=== PATIENT | male | born 1940 | race Caucasian/White ===

== ENCOUNTER → 2016-11-18 | Outpatient (CLI) | payer MEDICARE, OTHER ==
[~2016-11-18] MED LIST: NIAC500T13 PO; PRAVASTATIN; PRO20T GT; VERA240C2 OR
[2016-11-18 09:18] LABS: Basophils # (auto) 0.1 uL; Basophils % (auto) 0.7 % (0.0-2.0); Eosinophils # (auto) 0.1 uL; Eosinophils % (auto) 1.2 % (0.0-7.0); Hematocrit 41.8 % (41.0-53.0); Hemoglobin 13.6 g/dL (13.5-17.5); Lymphocytes % (auto) 13.6 % (10.0-50.0); Mean Corpuscular Hemoglobin 31.1 pg (28.0-32.0); Mean Corpuscular Hgb Conc. 32.5 g/dL (32.0-36.0); Mean Corpuscular Volume 95.8 fL (80.0-100.0); Mean Platelet Volume 7.6 fL (7.4-10.4); Monocytes # (auto) 0.7 uL; Neutrophils # (auto) 5.5 uL; Neutrophils % (auto) 75.5 % (37.0-80.0); Platelet Count (auto) 277 10^3/uL (140-450); Red Cell Distribution Width 12.6 % (11.6-16.0); White Blood Cell 7.3 10^3/uL (4.4-10.8)
[2016-11-18 09:31] LABS: Urine Bilirubin Negative (Negative); Urine Blood Negative /uL (Negative); Urine Color Yellow (Yellow); Urine Glucose Normal (Normal); Urine Ketone Negative (Negative); Urine Nitrite Negative (Negative); Urine RBC <1 /hpf (0 - 3); Urine Urobilinogen Normal (Negative); Urine pH 6.5 (5.0-8.0)
[2016-11-18 10:36] LABS: Albumin 4.1 g/dL (3.4-5.0); BUN/Creatinine Ratio 10.8; Bilirubin, Total 0.7 mg/dL (0.2-1.0); Potassium 4.3 mmol/L (3.5-5.1); Total Protein 7.9 g/dL (6.4-8.2)
== END | disposition home or self-care (01) ==
LOC: LAB 08:05
PROVIDERS: ATTEND Family Medicine
DX: Z85.46 Personal history of malignant neoplasm of prostate (principal); E78.5 Hyperlipidemia, unspecified
CPT/HCPCS: 36415; 80053; 80061; 81001; 84153; 85025

== ENCOUNTER → 2017-02-02 | Outpatient (CLI) | payer MEDICARE, OTHER ==
[2017-02-02 09:26] LABS: Urine RBC None Seen /hpf (0 - 3)
[2017-02-02 09:39] LABS: Basophils # (auto) 0 uL; Basophils % (auto) 0.7 % (0.0-2.0); Eosinophils # (auto) 0.1 uL; Eosinophils % (auto) 1.9 % (0.0-7.0); Hematocrit 41.9 % (41.0-53.0); Hemoglobin 14.3 g/dL (13.5-17.5); Lymphocytes # (auto) 1.2 uL; Lymphocytes % (auto) 23.8 % (10.0-50.0); Mean Corpuscular Hemoglobin 32.1 pg (28.0-32.0); Mean Corpuscular Hgb Conc. 34.2 g/dL (32.0-36.0); Mean Corpuscular Volume 93.8 fL (80.0-100.0); Mean Platelet Volume 7.3 fL (7.4-10.4); Monocytes # (auto) 0.5 uL; Monocytes % (auto) 10.1 % (0.0-12.0); Neutrophils # (auto) 3.2 uL; Neutrophils % (auto) 63.5 % (37.0-80.0); Platelet Count (auto) 300 10^3/uL (140-450); Red Cell Distribution Width 13.1 % (11.6-16.0); White Blood Cell 5.1 10^3/uL (4.4-10.8)
[2017-02-02 09:45] LABS: Urine Bilirubin Negative (Negative); Urine Blood Negative /uL (Negative); Urine Color Yellow (Yellow); Urine Glucose Normal (Normal); Urine Ketone Negative (Negative); Urine Nitrite Negative (Negative); Urine Urobilinogen Normal (Negative)
[2017-02-02 10:30] LABS: Albumin 4.2 g/dL (3.4-5.0); BUN/Creatinine Ratio 10.5; Bilirubin, Total 0.7 mg/dL (0.2-1.0); Calcium 9.1 mg/dL (8.5-10.1); Potassium 4.1 mmol/L (3.5-5.1); Total Protein 8.4 g/dL (6.4-8.2)
== END | disposition home or self-care (01) ==
LOC: LAB 08:49
DX: Z79.899 Other long term (current) drug therapy (principal); E55.9 Vitamin D deficiency, unspecified
CPT/HCPCS: 36415; 80053; 81001; 82306; 85025; 87086

== ENCOUNTER → 2017-06-29 | Outpatient (CLI) | payer MEDICARE, OTHER ==
[2017-06-29 09:22] LABS: Urine RBC None Seen /hpf (0 - 3)
[2017-06-29 09:28] LABS: Basophils # (auto) 0 uL; Basophils % (auto) 0.6 % (0.0-2.0); CONDITION Y; Eosinophils # (auto) 0.2 uL; Eosinophils % (auto) 3.1 % (0.0-7.0); Hematocrit 39.7 % (41.0-53.0); Hemoglobin 13.9 g/dL (13.5-17.5); Lymphocytes # (auto) 1.2 uL; Lymphocytes % (auto) 24.1 % (10.0-50.0); Mean Corpuscular Hgb Conc. 35.1 g/dL (32.0-36.0); Mean Corpuscular Volume 93.9 fL (80.0-100.0); Mean Platelet Volume 7.1 fL (6.9-10.8); Monocytes # (auto) 0.5 uL; Monocytes % (auto) 10.8 % (0.0-12.0); Neutrophils # (auto) 3.1 uL; Neutrophils % (auto) 61.4 % (37.0-80.0); Platelet Count (auto) 257 10^3/uL (140-450); Red Cell Distribution Width 12.7 % (11.8-14.3)
[2017-06-29 09:50] LABS: BUN/Creatinine Ratio 8.9; Bilirubin, Total 0.3 mg/dL (0.2-1.0); Calcium 8.7 mg/dL (8.5-10.1); Potassium 3.6 mmol/L (3.5-5.1)
[2017-06-29 09:55] LABS: Urine Bilirubin Negative (Negative); Urine Blood Negative /uL (Negative); Urine Color Yellow (Yellow); Urine Glucose Normal (Normal); Urine Ketone Negative (Negative); Urine Mucus FEW (None Seen); Urine Nitrite Negative (Negative); Urine Squamous Epithelial Cell FEW /hpf (<5); Urine Urobilinogen Normal (Negative); Urine pH 5.5 (5.0-8.0)
== END | disposition home or self-care (01) ==
LOC: LAB 09:01
DX: Z01.89 Encounter for other specified special examinations (principal); E55.9 Vitamin D deficiency, unspecified; I10 Essential (primary) hypertension; Z79.899 Other long term (current) drug therapy
CPT/HCPCS: 36415; 80053; 81001; 82306; 85025

== ENCOUNTER → 2017-08-24 | Outpatient (CLI) | payer MEDICARE, OTHER ==
[2017-08-24 08:38] LABS: Urine RBC None Seen /hpf (0 - 3)
[2017-08-24 08:56] LABS: Basophils # (auto) 0.1 uL; Eosinophils # (auto) 0.1 uL; Hematocrit 41.7 % (41.0-53.0); Hemoglobin 14.5 g/dL (13.5-17.5); Lymphocytes # (auto) 0.8 uL; Lymphocytes % (auto) 9.8 % (10.0-50.0); Mean Corpuscular Hemoglobin 32.9 pg (28.0-32.0); Mean Corpuscular Hgb Conc. 34.8 g/dL (32.0-36.0); Mean Corpuscular Volume 94.5 fL (80.0-100.0); Monocytes # (auto) 0.6 uL; Monocytes % (auto) 7.2 % (0.0-12.0); Neutrophils # (auto) 6.6 uL; Platelet Count (auto) 226 10^3/uL (140-450); Red Cell Distribution Width 12.9 % (11.8-14.3); White Blood Cell 8.2 10^3/uL (4.4-10.8)
[2017-08-24 09:05] LABS: Urine Bilirubin Negative (Negative); Urine Blood Negative /uL (Negative); Urine Glucose Normal (Normal); Urine Ketone Negative (Negative); Urine Mucus FEW (None Seen); Urine Nitrite Negative (Negative); Urine Urobilinogen Normal (Negative); Urine pH 5.5 (5.0-8.0)
[2017-08-24 09:07] LABS: Urine Color Yellow (Yellow)
[2017-08-24 09:15] LABS: Albumin 4.2 g/dL (3.4-5.0); BUN/Creatinine Ratio 9.2; Bilirubin, Total 0.6 mg/dL (0.2-1.0); Potassium 3.9 mmol/L (3.5-5.1); Total Protein 8.4 g/dL (6.4-8.2)
== END | disposition home or self-care (01) ==
LOC: LAB 08:20
DX: I10 Essential (primary) hypertension (principal); Z79.899 Other long term (current) drug therapy
CPT/HCPCS: 36415; 80053; 81001; 82306; 85025

== ENCOUNTER → 2018-03-26 | Outpatient (CLI) | payer MEDICARE, OTHER ==
[2018-03-26 08:53] LABS: Basophils # (auto) 0.1 uL; Basophils % (auto) 1.2 % (0.0-2.0); Eosinophils # (auto) 0.1 uL; Eosinophils % (auto) 1.7 % (0.0-7.0); Hematocrit 39.8 % (41.0-53.0); Hemoglobin 13.9 g/dL (13.5-17.5); Lymphocytes # (auto) 1.3 uL; Lymphocytes % (auto) 21.5 % (10.0-50.0); Mean Corpuscular Hemoglobin 32.5 pg (28.0-32.0); Mean Corpuscular Hgb Conc. 35.1 g/dL (32.0-36.0); Mean Corpuscular Volume 92.8 fL (80.0-100.0); Monocytes # (auto) 0.6 uL; Monocytes % (auto) 9.5 % (0.0-12.0); Neutrophils # (auto) 3.9 uL; Neutrophils % (auto) 66.1 % (37.0-80.0); Nucleated Red Blood Cells % 0.1 %; Platelet Count (auto) 231 10^3/uL (140-450); Red Blood Cells 4.29 10^6/uL (4.5-5.90); Red Cell Distribution Width 12.9 % (11.8-14.3); White Blood Cell 5.8 10^3/uL (4.4-10.8)
[2018-03-26 08:59] LABS: Urine Bacteria NONE SEEN /hpf (None Seen); Urine Blood Negative /uL (Negative); Urine Specific Gravity 1.016 (1.001-1.035); Urine WBC <1 /hpf (0 - 3)
[2018-03-26 09:46] LABS: BUN/Creatinine Ratio 13.2; Bilirubin, Total 0.4 mg/dL (0.2-1.0); Calcium 9.1 mg/dL (8.5-10.1); Potassium 4.2 mmol/L (3.5-5.1); Total Protein 8.1 g/dL (6.4-8.2)
== END | disposition home or self-care (01) ==
LOC: LAB 08:33
PROVIDERS: ATTEND Family Medicine
DX: I10 Essential (primary) hypertension (principal); E78.5 Hyperlipidemia, unspecified; Z79.899 Other long term (current) drug therapy; Z85.46 Personal history of malignant neoplasm of prostate
CPT/HCPCS: 36415; 80053; 80061; 81001; 83036; 84153; 85025

== ENCOUNTER → 2018-10-19 | Outpatient (CLI) | payer MEDICARE, OTHER ==
[2018-10-19 09:10] LABS: Basophils # (auto) 0.1 uL; Basophils % (auto) 1.2 % (0.0-2.0); Eosinophils # (auto) 0.1 uL; Eosinophils % (auto) 2.3 % (0.0-7.0); Hematocrit 41.4 % (41.0-53.0); Hemoglobin 14.1 g/dL (13.5-17.5); Lymphocytes # (auto) 0.9 uL; Lymphocytes % (auto) 18.8 % (10.0-50.0); Mean Corpuscular Hemoglobin 32.3 pg (28.0-32.0); Mean Corpuscular Hgb Conc. 34.2 g/dL (32.0-36.0); Mean Corpuscular Volume 94.5 fL (80.0-100.0); Monocytes # (auto) 0.5 uL; Monocytes % (auto) 11.2 % (0.0-12.0); Neutrophils # (auto) 3.2 uL; Neutrophils % (auto) 66.5 % (37.0-80.0); Platelet Count (auto) 230 10^3/uL (140-450); Red Blood Cells 4.38 10^6/uL (4.5-5.90); Red Cell Distribution Width 12.7 % (11.8-14.3); White Blood Cell 4.8 10^3/uL (4.4-10.8)
[2018-10-19 09:26] LABS: Albumin 4.1 g/dL (3.4-5.0); Potassium 4.1 mmol/L (3.5-5.1)
[2018-10-19 09:34] LABS: BUN/Creatinine Ratio 16.9; Bilirubin, Total 0.7 mg/dL (0.2-1.0); Calcium 8.8 mg/dL (8.5-10.1)
[2018-10-19 10:44] LABS: Urine Bacteria NONE SEEN /hpf (None Seen); Urine Blood Negative /uL (Negative); Urine Mucus FEW (None Seen); Urine Specific Gravity 1.017 (1.001-1.035); Urine WBC <1 /hpf (0 - 3)
== END | disposition home or self-care (01) ==
LOC: LAB 08:26
PROVIDERS: ATTEND Nurse Practitioner
DX: E78.5 Hyperlipidemia, unspecified (principal); I10 Essential (primary) hypertension; R35.1 Nocturia; Z79.899 Other long term (current) drug therapy
CPT/HCPCS: 36415; 80053; 80061; 81001; 83036; 84153; 84443; 85025

== ENCOUNTER → 2019-01-17 | Outpatient (CLI) | payer MEDICARE, OTHER ==
[2019-01-17 09:25] LABS: Urine Bacteria NONE SEEN /hpf (None Seen); Urine Blood Negative /uL (Negative); Urine Specific Gravity 1.022 (1.001-1.035); Urine WBC 1 /hpf (0 - 3)
[2019-01-17 09:27] LABS: Basophils # (auto) 0 uL; Basophils % (auto) 0.8 % (0.0-2.0); Eosinophils # (auto) 0.2 uL; Eosinophils % (auto) 3.9 % (0.0-7.0); Hematocrit 40.6 % (41.0-53.0); Hemoglobin 14.2 g/dL (13.5-17.5); Lymphocytes # (auto) 1.1 uL; Lymphocytes % (auto) 20.9 % (10.0-50.0); Mean Corpuscular Hemoglobin 32.5 pg (28.0-32.0); Mean Corpuscular Hgb Conc. 34.9 g/dL (32.0-36.0); Mean Corpuscular Volume 93.1 fL (80.0-100.0); Monocytes # (auto) 0.6 uL; Monocytes % (auto) 11.2 % (0.0-12.0); Neutrophils # (auto) 3.3 uL; Neutrophils % (auto) 63.2 % (37.0-80.0); Nucleated Red Blood Cells % 0.1 %; Platelet Count (auto) 228 10^3/uL (140-450); Red Blood Cells 4.36 10^6/uL (4.5-5.90); Red Cell Distribution Width 12.9 % (11.8-14.3); White Blood Cell 5.3 10^3/uL (4.4-10.8)
[2019-01-17 09:37] LABS: Potassium 4.3 mmol/L (3.5-5.1)
[2019-01-17 09:51] LABS: Albumin 4.1 g/dL (3.4-5.0); BUN/Creatinine Ratio 15.2; Bilirubin, Total 0.6 mg/dL (0.2-1.0); Calcium 8.9 mg/dL (8.5-10.1); Total Protein 8.1 g/dL (6.4-8.2)
== END | disposition home or self-care (01) ==
LOC: LAB 08:45
PROVIDERS: ATTEND Nurse Practitioner
DX: E11.9 Type 2 diabetes mellitus without complications (principal); E78.5 Hyperlipidemia, unspecified
CPT/HCPCS: 36415; 80053; 80061; 81001; 82043; 83036; 85025

== ENCOUNTER → 2019-05-16 | Outpatient (CLI) | payer MEDICARE, OTHER ==
[2019-05-16 09:52] LABS: Urine Bacteria NONE SEEN /hpf (None Seen); Urine Blood Negative /uL (Negative); Urine Mucus FEW (None Seen); Urine Specific Gravity 1.022 (1.001-1.035); Urine WBC 1 /hpf (0 - 3)
[2019-05-16 09:57] LABS: Basophils # (auto) 0.1 uL; Basophils % (auto) 1.4 % (0.0-2.0); Eosinophils # (auto) 0.1 uL; Eosinophils % (auto) 3.1 % (0.0-7.0); Hematocrit 40.5 % (41.0-53.0); Hemoglobin 14.1 g/dL (13.5-17.5); Lymphocytes % (auto) 23.6 % (10.0-50.0); Mean Corpuscular Hemoglobin 32.7 pg (28.0-32.0); Mean Corpuscular Hgb Conc. 34.7 g/dL (32.0-36.0); Monocytes # (auto) 0.5 uL; Monocytes % (auto) 10.8 % (0.0-12.0); Neutrophils # (auto) 2.7 uL; Neutrophils % (auto) 61.1 % (37.0-80.0); Nucleated Red Blood Cells % 0.1 %; Platelet Count (auto) 213 10^3/uL (140-450); Red Cell Distribution Width 12.6 % (11.8-14.3); White Blood Cell 4.4 10^3/uL (4.4-10.8)
[2019-05-16 10:37] LABS: Potassium 4.1 mmol/L (3.5-5.1)
[2019-05-16 10:49] LABS: Albumin 3.9 g/dL (3.4-5.0); BUN/Creatinine Ratio 13.9; Bilirubin, Total 0.5 mg/dL (0.2-1.0); Total Protein 7.8 g/dL (6.4-8.2)
== END | disposition home or self-care (01) ==
LOC: LAB 08:49
PROVIDERS: ATTEND Nurse Practitioner
DX: E11.9 Type 2 diabetes mellitus without complications (principal); E78.5 Hyperlipidemia, unspecified; Z85.46 Personal history of malignant neoplasm of prostate
CPT/HCPCS: 36415; 80053; 80061; 81001; 82043; 83036; 84153; 84443; 85025

== ENCOUNTER → 2022-03-03 | Outpatient (CLI) | payer MEDICARE, OTHER ==
[~2022-03-03] MED LIST changes: -NIAC500T13 PO; +NIAC500T93 PO
== END | disposition home or self-care (01) ==
LOC: XYW 09:34
PROVIDERS: ATTEND Internal Medicine
DX: I35.1 Nonrheumatic aortic (valve) insufficiency (principal)
CPT/HCPCS: 93306

== ENCOUNTER → 2022-03-25 | Outpatient (CLI) | payer MEDICARE, OTHER ==
[~2022-03-25] VITALS: Ht 177.8 cm; Wt 80.7 kg
[~2022-03-25] MED LIST changes: +ADENOSINE 68 MG in GIVE UN-DILUTED 0 ML IV STA
[2022-03-25 09:52] VITALS: BP 159/95
== END | disposition home or self-care (01) ==
LOC: XY 08:28
PROVIDERS: ATTEND Internal Medicine
DX: I99.8 Other disorder of circulatory system (principal); R94.31 Abnormal electrocardiogram [ECG] [EKG]; R20.9 Unspecified disturbances of skin sensation; Z87.891 Personal history of nicotine dependence; Z86.69 Personal history of other diseases of the nervous system and sense organs
CPT/HCPCS: 78452; 93017; A9500; J0153

== ENCOUNTER 2022-09-01 15:53 | Inpatient (IN) | payer MEDICARE, OTHER ==
[~2022-09-01] VITALS: Ht 177.8 cm; Wt 78.1 kg
[~2022-09-01 15:53] MED LIST changes: -ADENOSINE 68 MG in GIVE UN-DILUTED 0 ML IV STA
[2022-09-01 16:55] LABS: Basophils # (auto) 0.1 10 ^3/uL (0-0.2); Basophils % (auto) 1.3 % (0.0-2.0); Eosinophils # (auto) 0.1 10 ^3/uL (0-0.8); Eosinophils % (auto) 2.5 % (0.0-7.0); Hematocrit 33.5 % (41.0-53.0); Lymphocytes # (auto) 0.5 10 ^3/uL (0.4-5.4); Lymphocytes % (auto) 8.4 % (10.0-50.0); Mean Corpuscular Hemoglobin 28.3 pg (28.0-32.0); Mean Corpuscular Hgb Conc. 32.7 g/dL (32.0-36.0); Mean Corpuscular Volume 86.5 fL (80.0-100.0); Monocytes # (auto) 0.5 10 ^3/uL (0-1.3); Monocytes % (auto) 7.7 % (0.0-12.0); Neutrophils # (auto) 4.8 10 ^3/uL (1.6-8.6); Neutrophils % (auto) 80.1 % (37.0-80.0); Nucleated Red Blood Cells % 0.1 %; Red Blood Cells 3.87 10^6/uL (4.5-5.90); Red Cell Distribution Width 16.8 % (11.8-14.3)
[2022-09-01 17:33] LABS: Albumin 2.2 g/dL (3.4-5.0); Bilirubin, Total 0.7 mg/dL (0.2-1.0); Calcium 8.3 mg/dL (8.5-10.1); Magnesium 2.3 mg/dL (1.6-2.6)
[2022-09-01 17:57] LABS: Potassium 1.9 mmol/L (3.5-5.1)
[2022-09-01] MEDS ORDERED: POTASSIUM CHL 20 Meq TABLET PO ONE (18:00)
[2022-09-01] MEDS ORDERED: POTASSIUM CHL 20MEQ/100ML 100 ML IV ONE (18:00)
[2022-09-01] MEDS ORDERED: MORPHINE SULFATE INJ 2 MG/ml SYRG IV PRN (21:00)
[2022-09-01] MEDS ORDERED: DEXTROSE (50%) 50ML SYRG IV PRN (21:00)
[2022-09-01] MEDS ORDERED: TEMAZEPAM 15 MG CAP PO PRN (21:00)
[2022-09-01] MEDS ORDERED: NITROGLYCERIN 0.4 MG SL TAB SL PRN (21:00)
[2022-09-01] MEDS ORDERED: ACETAMINOPHEN 325 MG TAB PO PRN (21:00)
[2022-09-01] MEDS ORDERED: ONDANSETRON HCL 4 MG/2 ML VIAL IV PRN (21:00)
[2022-09-01] MEDS ORDERED: cloNIDine HCL 0.1 MG TAB PO PRN (21:00)
[2022-09-01] MEDS: ACCU-CHEK COMFORT CURVE STRIP VI SCH (21:36)
[2022-09-01] MEDS: InsuLIN REG 1unit/0.01ml Soln (100units/ml) SC SCH (21:36)
[2022-09-01] MEDS: ATORVASTATIN 20 MG TAB PO SCH (21:55)
[2022-09-01] MEDS: PROPRANOLOL HCL 20 MG TAB PO SCH (21:56)
[2022-09-01 22:21] LABS: Anion Gap 11 (5-15); BUN/Creatinine Ratio 11.7; Blood Urea Nitrogen 27 mg/dL (7-18); Calcium 7.8 mg/dL (8.5-10.1); Carbon Dioxide 25 mmol/L (21-32); Chloride 97 mmol/L (98-107); GFR African American 35 mL/min; GFR Non-African American 29 mL/min; Glucose 99 mg/dL (74-106); Sodium 133 mmol/L (136-145)
[2022-09-01 22:49] LABS: Potassium 2.3 mmol/L (3.5-5.1)
[2022-09-02] MEDS ORDERED: POTASSIUM CHL 20MEQ/100ML 100 ML IV ONE
[2022-09-02 05:45] LABS: Basophils # (auto) 0 10 ^3/uL (0-0.2); Basophils % (auto) 0.8 % (0.0-2.0); Eosinophils # (auto) 0.2 10 ^3/uL (0-0.8); Eosinophils % (auto) 3.8 % (0.0-7.0); Hematocrit 28.5 % (41.0-53.0); Hemoglobin 9.4 g/dL (13.5-17.5); Lymphocytes # (auto) 0.5 10 ^3/uL (0.4-5.4); Lymphocytes % (auto) 8.6 % (10.0-50.0); Mean Corpuscular Hemoglobin 28.6 pg (28.0-32.0); Mean Corpuscular Hgb Conc. 33.1 g/dL (32.0-36.0); Mean Corpuscular Volume 86.5 fL (80.0-100.0); Monocytes # (auto) 0.5 10 ^3/uL (0-1.3); Monocytes % (auto) 7.8 % (0.0-12.0); Neutrophils # (auto) 4.7 10 ^3/uL (1.6-8.6); Red Cell Distribution Width 16.5 % (11.8-14.3); White Blood Cell 5.9 10^3/uL (4.4-10.8)
[2022-09-02 06:19] LABS: BUN/Creatinine Ratio 12.2; Calcium 8.1 mg/dL (8.5-10.1)
[2022-09-02 06:28] LABS: Potassium 2.5 mmol/L (3.5-5.1)
[2022-09-02] MEDS: ACCU-CHEK COMFORT CURVE STRIP VI SCH ×4 (06:37→22:11)
[2022-09-02] MEDS: InsuLIN REG 1unit/0.01ml Soln (100units/ml) SC SCH ×4 (06:39→22:00)
[2022-09-02] MEDS ORDERED: POTASSIUM CHL 20 Meq TABLET PO ONE ×3 (06:45→20:00)
[2022-09-02] MEDS ORDERED: ALBUTEROL SULF 2.5 MG/0.5ML(0.5%) NEB SOLN NEB PRN (09:00)
[2022-09-02 09:37] LABS: Phosphorus 3.3 mg/dL (2.5-4.90); Uric Acid 4.8 mg/dL (3.5-7.2)
[2022-09-02] MEDS ORDERED: ENOXAPARIN SOD 40 MG/0.4 ML SYRINGE SC SCH (10:00)
[2022-09-02] MEDS ORDERED: PANTOPRAZOLE 40 MG TAB PO SCH (10:00)
[2022-09-02] MEDS: LOSARTAN POTASSIUM 25 MG TAB PO SCH (11:00)
[2022-09-02] MEDS: PROPRANOLOL HCL 20 MG TAB PO SCH ×2 (11:01→22:12)
[2022-09-02] MEDS: DOXYCYCLINE 100 MG TAB/CAP PO SCH ×2 (11:01→22:12)
[2022-09-02] MEDS: ENOXAPARIN SOD 30 MG/0.3 ML SYRINGE SC SCH (11:02)
[2022-09-02 12:13] LABS: Urine Bacteria FEW /hpf (None Seen); Urine Blood TRACE /uL (Negative); Urine Specific Gravity 1.015 (1.001-1.035); Urine WBC 5 /hpf (0 - 3)
[2022-09-02 13:48] LABS: Creatinine, Urine 96 mg/dL (30.0-125.0); Sodium Urine 41 mmol/L (40-220)
[2022-09-02 15:27] VITALS: BP 124/77
[2022-09-02] MEDS: POTASSIUM CHL 20 Meq TABLET PO SCH ×2 (15:35→20:16)
[2022-09-02] MEDS: ATORVASTATIN 20 MG TAB PO SCH (22:11)
[2022-09-03] MEDS ORDERED: LOSA-69 PO (01:21)
[2022-09-03 05:00] VITALS: BP 127/70
[2022-09-03] MEDS: ACCU-CHEK COMFORT CURVE STRIP VI SCH ×4 (07:00→22:42)
[2022-09-03] MEDS: InsuLIN REG 1unit/0.01ml Soln (100units/ml) SC SCH ×4 (07:00→22:00)
[2022-09-03 07:03] LABS: Potassium 3.2 mmol/L (3.5-5.1)
[2022-09-03 07:04] LABS: BUN/Creatinine Ratio 14.1; Calcium 7.9 mg/dL (8.5-10.1); Magnesium 2.2 mg/dL (1.6-2.6)
[2022-09-03] MEDS ORDERED: POTASSIUM CHL 20 Meq TABLET PO ONE ×2 (07:45→16:00)
[2022-09-03] MEDS ORDERED: SPIRONOLACTONE 25 MG TAB PO ONE (08:30)
[2022-09-03 08:58] VITALS: BP 131/80
[2022-09-03] MEDS: ENOXAPARIN SOD 30 MG/0.3 ML SYRINGE SC SCH (11:23)
[2022-09-03] MEDS: DOXYCYCLINE 100 MG TAB/CAP PO SCH ×2 (11:24→22:39)
[2022-09-03] MEDS: PROPRANOLOL HCL 20 MG TAB PO SCH ×2 (11:24→22:39)
[2022-09-03] MEDS: LOSARTAN POTASSIUM 25 MG TAB PO SCH (11:25)
[2022-09-03 13:20] VITALS: BP 111/81
[2022-09-03 16:44] VITALS: BP 129/77
[2022-09-03] MEDS: ATORVASTATIN 20 MG TAB PO SCH (22:00)
[2022-09-04 05:00] VITALS: BP 135/79
[2022-09-04] MEDS: InsuLIN REG 1unit/0.01ml Soln (100units/ml) SC SCH ×4 (05:38→21:54)
[2022-09-04] MEDS: ACCU-CHEK COMFORT CURVE STRIP VI SCH ×4 (05:47→22:00)
[2022-09-04 06:28] LABS: Calcium 8.2 mg/dL (8.5-10.1); Potassium 4.1 mmol/L (3.5-5.1)
[2022-09-04 06:32] LABS: BUN/Creatinine Ratio 14.7; Magnesium 1.9 mg/dL (1.6-2.6)
[2022-09-04 09:00] VITALS: BP 139/91
[2022-09-04] MEDS: PROPRANOLOL HCL 20 MG TAB PO SCH ×2 (09:55→21:55)
[2022-09-04] MEDS: DOXYCYCLINE 100 MG TAB/CAP PO SCH ×2 (09:55→21:55)
[2022-09-04] MEDS: ENOXAPARIN SOD 30 MG/0.3 ML SYRINGE SC SCH (09:56)
[2022-09-04] MEDS: LOSARTAN POTASSIUM 25 MG TAB PO SCH (09:56)
[2022-09-04 13:00] VITALS: BP 123/78
[2022-09-04 17:30] VITALS: BP 136/77
[2022-09-04] MEDS: ATORVASTATIN 20 MG TAB PO SCH (21:55)
[2022-09-04 22:07] VITALS: BP 146/88
[2022-09-05] VITALS (7 sets, daily range): BP systolic 126–151; BP diastolic 77–86
[2022-09-05 05:16] LABS: Basophils # (auto) 0 10 ^3/uL (0-0.2); Basophils % (auto) 0.5 % (0.0-2.0); Eosinophils # (auto) 0.1 10 ^3/uL (0-0.8); Eosinophils % (auto) 1.5 % (0.0-7.0); Hematocrit 30.3 % (41.0-53.0); Hemoglobin 10.1 g/dL (13.5-17.5); Lymphocytes # (auto) 0.5 10 ^3/uL (0.4-5.4); Lymphocytes % (auto) 7.5 % (10.0-50.0); Mean Corpuscular Hemoglobin 28.9 pg (28.0-32.0); Mean Corpuscular Hgb Conc. 33.2 g/dL (32.0-36.0); Mean Corpuscular Volume 87.1 fL (80.0-100.0); Monocytes # (auto) 0.5 10 ^3/uL (0-1.3); Monocytes % (auto) 6.6 % (0.0-12.0); Neutrophils # (auto) 5.7 10 ^3/uL (1.6-8.6); Neutrophils % (auto) 83.9 % (37.0-80.0); Red Blood Cells 3.48 10^6/uL (4.5-5.90); Red Cell Distribution Width 16.7 % (11.8-14.3); White Blood Cell 6.8 10^3/uL (4.4-10.8)
[2022-09-05 05:31] LABS: Albumin 2.1 g/dL (3.4-5.0); Potassium 3.3 mmol/L (3.5-5.1)
[2022-09-05 05:38] LABS: BUN/Creatinine Ratio 18.4; Bilirubin, Total 0.9 mg/dL (0.2-1.0); Calcium 8.3 mg/dL (8.5-10.1); Magnesium 1.8 mg/dL (1.6-2.6)
[2022-09-05] MEDS: InsuLIN REG 1unit/0.01ml Soln (100units/ml) SC SCH ×4 (06:35→21:35)
[2022-09-05] MEDS: ACCU-CHEK COMFORT CURVE STRIP VI SCH ×4 (06:35→21:35)
[2022-09-05] MEDS ORDERED: MAGNESIUM OXIDE 400 MG TAB PO ONE (08:30)
[2022-09-05] MEDS ORDERED: POTASSIUM CHL 20 Meq TABLET PO ONE (08:30)
[2022-09-05] MEDS: LOSARTAN POTASSIUM 25 MG TAB PO SCH (10:40)
[2022-09-05] MEDS: POTASSIUM CHL 20 Meq TABLET PO SCH (10:41)
[2022-09-05] MEDS: PROPRANOLOL HCL 20 MG TAB PO SCH ×2 (10:41→22:00)
[2022-09-05] MEDS: DOXYCYCLINE 100 MG TAB/CAP PO SCH ×2 (10:42→21:35)
[2022-09-05] MEDS: ATORVASTATIN 20 MG TAB PO SCH (21:35)
[2022-09-06 05:00] VITALS: BP 147/85
[2022-09-06 05:36] LABS: Potassium 3.4 mmol/L (3.5-5.1)
[2022-09-06 05:43] LABS: Albumin 2.1 g/dL (3.4-5.0); Bilirubin, Total 0.9 mg/dL (0.2-1.0); Calcium 8.9 mg/dL (8.5-10.1); Magnesium 1.9 mg/dL (1.6-2.6)
[2022-09-06] MEDS: ACCU-CHEK COMFORT CURVE STRIP VI SCH ×4 (06:35→22:00)
[2022-09-06] MEDS: InsuLIN REG 1unit/0.01ml Soln (100units/ml) SC SCH ×4 (06:35→22:00)
[2022-09-06 08:46] LABS: Basophils # (auto) 0 10 ^3/uL (0-0.2); Basophils % (auto) 0.5 % (0.0-2.0); Eosinophils # (auto) 0.2 10 ^3/uL (0-0.8); Eosinophils % (auto) 3.2 % (0.0-7.0); Hematocrit 34.1 % (41.0-53.0); Hemoglobin 10.6 g/dL (13.5-17.5); Lymphocytes # (auto) 0.3 10 ^3/uL (0.4-5.4); Lymphocytes % (auto) 4.4 % (10.0-50.0); Mean Corpuscular Hemoglobin 27.2 pg (28.0-32.0); Mean Corpuscular Hgb Conc. 31.1 g/dL (32.0-36.0); Mean Corpuscular Volume 87.6 fL (80.0-100.0); Monocytes # (auto) 0.5 10 ^3/uL (0-1.3); Monocytes % (auto) 7.1 % (0.0-12.0); Neutrophils # (auto) 5.5 10 ^3/uL (1.6-8.6); Neutrophils % (auto) 84.8 % (37.0-80.0); Nucleated Red Blood Cells % 0.4 %; Red Cell Distribution Width 16.7 % (11.8-14.3); White Blood Cell 6.5 10^3/uL (4.4-10.8)
[2022-09-06 09:00] VITALS: BP 133/74
[2022-09-06] MEDS: PROPRANOLOL HCL 20 MG TAB PO SCH ×2 (10:38→22:49)
[2022-09-06] MEDS: LOSARTAN POTASSIUM 25 MG TAB PO SCH (10:38)
[2022-09-06] MEDS: MAGNESIUM OXIDE 400 MG TAB PO SCH (10:39)
[2022-09-06] MEDS: DOXYCYCLINE 100 MG TAB/CAP PO SCH ×2 (10:39→22:50)
[2022-09-06] MEDS: POTASSIUM CHL 20 Meq TABLET PO SCH (10:39)
[2022-09-06 12:36] VITALS: BP 129/80
[2022-09-06 16:46] VITALS: BP 149/80
[2022-09-06 20:00] VITALS: BP 121/79
[2022-09-06 22:00] VITALS: BP 121/79
[2022-09-06] MEDS: ATORVASTATIN 20 MG TAB PO SCH (22:50)
[2022-09-07 05:00] VITALS: BP 135/76
[2022-09-07] MEDS: InsuLIN REG 1unit/0.01ml Soln (100units/ml) SC SCH ×4 (05:37→21:47)
[2022-09-07] MEDS: ACCU-CHEK COMFORT CURVE STRIP VI SCH ×4 (05:37→21:46)
[2022-09-07 06:11] LABS: Basophils # (auto) 0.1 10 ^3/uL (0-0.2); Basophils % (auto) 0.9 % (0.0-2.0); Eosinophils # (auto) 0.2 10 ^3/uL (0-0.8); Eosinophils % (auto) 3.9 % (0.0-7.0); Hematocrit 33.1 % (41.0-53.0); Hemoglobin 10.6 g/dL (13.5-17.5); Lymphocytes # (auto) 0.4 10 ^3/uL (0.4-5.4); Lymphocytes % (auto) 7.5 % (10.0-50.0); Mean Corpuscular Hemoglobin 27.9 pg (28.0-32.0); Mean Corpuscular Volume 87.3 fL (80.0-100.0); Monocytes # (auto) 0.6 10 ^3/uL (0-1.3); Monocytes % (auto) 9.7 % (0.0-12.0); Neutrophils # (auto) 4.6 10 ^3/uL (1.6-8.6); Nucleated Red Blood Cells % 0.3 %; Red Blood Cells 3.79 10^6/uL (4.5-5.90); Red Cell Distribution Width 16.7 % (11.8-14.3); White Blood Cell 5.9 10^3/uL (4.4-10.8)
[2022-09-07 06:25] LABS: Albumin 2.2 g/dL (3.4-5.0); BUN/Creatinine Ratio 19.4; Calcium 8.9 mg/dL (8.5-10.1); Magnesium 1.8 mg/dL (1.6-2.6)
[2022-09-07 06:36] LABS: Bilirubin, Total 0.9 mg/dL (0.2-1.0); Total Protein 7.3 g/dL (6.4-8.2)
[2022-09-07 09:19] VITALS: BP 135/91
[2022-09-07] MEDS: DOXYCYCLINE 100 MG TAB/CAP PO SCH ×2 (10:43→21:34)
[2022-09-07] MEDS: PROPRANOLOL HCL 20 MG TAB PO SCH ×2 (10:44→21:43)
[2022-09-07] MEDS: POTASSIUM CHL 20 Meq TABLET PO SCH (10:44)
[2022-09-07] MEDS: LOSARTAN POTASSIUM 25 MG TAB PO SCH (10:45)
[2022-09-07] MEDS: MAGNESIUM OXIDE 400 MG TAB PO SCH (10:45)
[2022-09-07 13:00] VITALS: BP 130/86
[2022-09-07 17:00] VITALS: BP 135/79
[2022-09-07] MEDS: POTASSIUM CHL 20MEQ/100ML 100 ML IV SCH ×3 (17:17→21:00)
[2022-09-07] MEDS: ATORVASTATIN 20 MG TAB PO SCH (21:33)
[2022-09-07 22:00] VITALS: BP 122/74
[2022-09-08] MEDS: POTASSIUM CHL 20MEQ/100ML 100 ML IV SCH ×2 (00:17→02:00)
[2022-09-08 05:00] VITALS: BP 141/79
[2022-09-08] MEDS ORDERED: POTASSIUM CHL 20MEQ/100ML 100 ML IV SCH (05:40)
[2022-09-08 05:57] LABS: Basophils # (auto) 0.1 10 ^3/uL (0-0.2); Basophils % (auto) 0.9 % (0.0-2.0); Eosinophils # (auto) 0.2 10 ^3/uL (0-0.8); Eosinophils % (auto) 3.7 % (0.0-7.0); Hematocrit 28.5 % (41.0-53.0); Hemoglobin 9.3 g/dL (13.5-17.5); Lymphocytes # (auto) 0.4 10 ^3/uL (0.4-5.4); Lymphocytes % (auto) 6.7 % (10.0-50.0); Mean Corpuscular Hemoglobin 28.3 pg (28.0-32.0); Mean Corpuscular Hgb Conc. 32.5 g/dL (32.0-36.0); Mean Corpuscular Volume 87.2 fL (80.0-100.0); Monocytes # (auto) 0.7 10 ^3/uL (0-1.3); Monocytes % (auto) 11.3 % (0.0-12.0); Neutrophils # (auto) 4.9 10 ^3/uL (1.6-8.6); Neutrophils % (auto) 77.4 % (37.0-80.0); Nucleated Red Blood Cells % 0.7 %; Red Blood Cells 3.28 10^6/uL (4.5-5.90); Red Cell Distribution Width 16.6 % (11.8-14.3); White Blood Cell 6.3 10^3/uL (4.4-10.8)
[2022-09-08] MEDS: InsuLIN REG 1unit/0.01ml Soln (100units/ml) SC SCH ×3 (06:33→17:00)
[2022-09-08] MEDS: ACCU-CHEK COMFORT CURVE STRIP VI SCH ×3 (06:34→17:13)
[2022-09-08 08:00] VITALS: BP 140/81
[2022-09-08 09:00] VITALS: BP 140/81
[2022-09-08 09:02] LABS: INR 1.2 (0.9-1.15); Partial Thromboplastin Time 21.9 sec (24.6-33.4)
[2022-09-08] MEDS: MAGNESIUM OXIDE 400 MG TAB PO SCH (10:08)
[2022-09-08] MEDS: DOXYCYCLINE 100 MG TAB/CAP PO SCH (10:08)
[2022-09-08] MEDS: PROPRANOLOL HCL 20 MG TAB PO SCH (10:09)
[2022-09-08] MEDS: LOSARTAN POTASSIUM 25 MG TAB PO SCH (10:09)
[2022-09-08 11:10] LABS: Alanine Aminotransferase 31 U/L (16-61); Albumin 1.9 g/dL (3.4-5.0); Anion Gap 10 (5-15); Aspartate Aminotransferase 49 U/L (15-37); BUN/Creatinine Ratio 17.2; Blood Urea Nitrogen 27 mg/dL (7-18); Calcium 8.3 mg/dL (8.5-10.1); Carbon Dioxide 21 mmol/L (21-32); Chloride 103 mmol/L (98-107); GFR African American 55 mL/min; GFR Non-African American 45 mL/min; Glucose 78 mg/dL (74-106); Potassium 3.1 mmol/L (3.5-5.1); Sodium 134 mmol/L (136-145)
[2022-09-08 11:13] LABS: Alkaline Phosphatase 139 U/L (45-117); Bilirubin, Total 0.8 mg/dL (0.2-1.0)
[2022-09-08] MEDS ORDERED: POTASSIUM CHL 20 Meq TABLET PO ONE (11:30)
[2022-09-08] MEDS: POTASSIUM CHL 20 Meq TABLET PO SCH (12:11)
[2022-09-08 13:00] VITALS: BP 132/77
[2022-09-08 17:00] VITALS: BP 148/91
[2022-09-08 17:50] VITALS: BP 148/91
== END 2022-09-08 19:42 | DRG 177 ==
LOC: EDBD 15:53 → ER 15:53 → TELE-CENTR 20:34 → TELE 21:06 → TELE-CENTR 09-02 22:34
PROVIDERS: ADMIT Nurse Practitioner; ATTEND Internal Medicine
DX: U07.1 COVID-19 (principal); J12.82 Pneumonia due to coronavirus disease 2019; N17.0 Acute kidney failure with tubular necrosis; E44.0 Moderate protein-calorie malnutrition; S36.892A Contusion of other intra-abdominal organs, initial encounter; E11.22 Type 2 diabetes mellitus with diabetic chronic kidney disease; E87.6 Hypokalemia; I12.9 Hypertensive chronic kidney disease with stage 1 through stage 4 chronic kidney disease, or unspecified chronic kidney disease; N18.31 Chronic kidney disease, stage 3a; D64.9 Anemia, unspecified; E78.5 Hyperlipidemia, unspecified; Z87.81 Personal history of (healed) traumatic fracture; N28.1 Cyst of kidney, acquired; X58.XXXA Exposure to other specified factors, initial encounter; Z90.5 Acquired absence of kidney; Z83.3 Family history of diabetes mellitus; Z82.3 Family history of stroke; Z85.46 Personal history of malignant neoplasm of prostate; Z68.25 Body mass index [BMI] 25.0-25.9, adult; Y93.89 Activity, other specified; Y92.89 Other specified places as the place of occurrence of the external cause; Y99.8 Other external cause status
CPT/HCPCS: 36415; 71045; 74176; 76775; 80048; 80053; 81001; 82306; 82570; 82962; 83036; 83735; 83880; 83930; 83935; 83970; 84100; 84132; 84133; 84300; 84443; 84550; 85025; 85610; 85730; 87081; 87426; 93005; 94640; 99291; G0378; J1815; J3480